=== PATIENT | male | born 1980 | race Caucasian/White ===

== ENCOUNTER 2019-04-25 07:39 | Emergency (ER) | payer MEDICAID ==
[~2019-04-25] VITALS: Ht 185.4 cm; Wt 69.0 kg
[2019-04-25 07:50] VITALS: BP 125/71
--- NOTE | 2019-04-25 10:00 | NUR ---
Came back to evaluate patient at which time, there was no patient belongings in room and patient was no longer here.
== END 2019-04-25 10:40 | disposition left against medical advice (07) ==
LOC: ER 07:40
DX: J02.9 Acute pharyngitis, unspecified (principal); R05 Cough; R50.9 Fever, unspecified; F17.200 Nicotine dependence, unspecified, uncomplicated; Z88.8 Allergy status to other drugs, medicaments and biological substances
CPT/HCPCS: 87081; 87880; 99283

== ENCOUNTER → 2020-02-09 | Emergency (ER) | payer MEDICAID ==
[~2020-02-09] VITALS: Ht 182.9 cm; Wt 81.1 kg
[2020-02-09 11:06] VITALS: BP 150/74
== END | disposition home or self-care (01) ==
LOC: ER 11:01
DX: R07.81 Pleurodynia (principal); M79.601 Pain in right arm; M79.602 Pain in left arm; Z00.01 Encounter for general adult medical examination with abnormal findings; Z88.0 Allergy status to penicillin; Y04.8XXA Assault by other bodily force, initial encounter; Y93.89 Activity, other specified; Y92.89 Other specified places as the place of occurrence of the external cause; Y99.8 Other external cause status
CPT/HCPCS: 71046; 73130; 99284

== ENCOUNTER 2024-12-16 16:34 | Emergency (ER) | payer MEDICAID ==
[~2024-12-16] VITALS: Ht 180.3 cm; Wt 81.8 kg
[2024-12-16 16:36] VITALS: TEMP 98.1
--- NOTE | 2024-12-16 17:43 | RADIOLOGY REPORT ---
CLINICAL INDICATION: RT.ANKLE PAIN TECHNIQUE: 3 radiographic views of the right ankle were obtained. Comparison: HAND, COMPLETE (3VW MIN) on DOS: 02/09/20 FINDINGS/IMPRESSION: There is no evidence of acute fracture or dislocation. Small well corticated bony fragment distal to the lateral malleolus which may represent sequela of prior injury. Mild medial moderate lateral ankle soft tissue edema. The visualized joint space is well maintained. The alignment is anatomical.
--- NOTE | 2024-12-16 18:08 | Physician Documentation ---
History of Present Illness ~ Chief Complaint: Ankle pain Stated Complaint: LEFT ANKLE PAIN Time Seen by MD: 16:43 Primary Medical Doctor: NONE HPI Patient is seen today with complaints of pain in his right ankle after walking across the street and accidentally stepping into a pothole or ditch and rolling his right ankle. Patient states he feels like he broke it. Patient states he heard a pop. Patient has no other concern or complaint at this time. Medication Reconciliation Allergies: Coded Allergies: Penicillins (Unverified Allergy, Unknown, 12/16/24) Past Medical History Past Medical History: No Pertinent History Past Surgical History: no surgical history Alcohol Use: Other Drug Use: other Lives with: Spouse Lives In: Home Occupation: other Review of Systems Constitutional: Denies: chills, fever, weakness Eyes: Denies: pain, blurred vision ENT: Denies: ear pain, nose pain, throat pain, mouth pain Respiratory: Denies: cough, shortness of breath Cardiovascular: Denies: chest pain, palpitations Gastrointestinal: Denies: abdominal pain, nausea, vomiting Genitourinary: Denies: burning, dysuria Male Genitalia: Denies: penile discharge, testicular pain Neurological: Denies: headache, dizziness Musculoskeletal: Denies: pain, swelling Integumentary: Denies: rash, lesions Allergic/Immunologic: Denies: hives, itching Hematologic/Lymphatic: Denies: no symptoms reported Psychiatric: Denies: depression, anxiety Physical Exam Vital Signs: Temperature: 98.1, Source: Temporal, Heart Rate: 107, Respiratory Rate: 16, BP: 130/87, Pulse Oximetry: 98, Weight: 81.800 Oxygen Flow Rate: 0 Physical Exam General: Awake and Alert, no acute distress. HEENT: Conjunctiva pink, Sclera clear, Mucus Membranes moist. Neck: Supple without masses and tenderness. Resp: Unlabored. Lungs clear to auscultation bilaterally. Heart: Regular Rate and rhythm, normal S1 and S2 without murmur, rub or gallop. Musculoskeletal: Patient on exam does have significant swelling of the over the lateral malleoli of the right ankle. As well as significant tenderness to palpation. Patient Extremities: No cyanosis,clubbing or edema. Skin: Warm and Dry. Progress Results/Orders Results/Orders Vital Signs 12/16/24 16:36 Temp 98.1 Pulse 107 Resp 16 B/P (MAP) 130/87 Pulse Ox 98 O2 Flow Rate 0 EKG/XRAY/CT/US/VASC/MRI Bone/Soft Tissue X-Ray (Ext.) : Additional Comment X-ray of right ankle interpreted by myself today shows no sign of acute fracture, bones in anatomic alignment, there is demonstrated a well corticated bony fragment distal to the lateral malleoli likely from previous injury. DIAGNOSTIC RADIOLOGY Patient: BRO HANSON Medical Record: [id number] [facility] : 1980, Age: 44 Sex: Male Location: ER Patient Status: [facility] ER Service Date/Time: 12/16/241653 Ordering Physician: ALBERT BAH MD Exam: ANKLE, COMPLETE(3VW MIN) CLINICAL INDICATION: RT.ANKLE PAIN TECHNIQUE: 3 radiographic views of the right ankle were obtained. Comparison: HAND, COMPLETE (3VW MIN) on DOS: 02/09/20 FINDINGS/IMPRESSION: There is no evidence of acute fracture or dislocation. Small well corticated bony fragment distal to the lateral malleolus which may represent sequela of prior injury. Mild medial moderate lateral ankle soft tissue edema. The visualized joint space is well maintained. The alignment is anatomical. Electronically Signed by:CLAUDINE BURTON DO Date & Time: 12/16/241740 Dictated by: CLAUDINE BURTON DO Dictation date and time: 12/16/241740 Primary Care Provider: NO PRIMARY CARE PROVIDER cc: ALBERT BAH MD ~ Medical Decision Making Findings Patient is seen today with complaints of pain in his right ankle after walking across the street and accidentally stepping into a pothole or ditch and rolling his right ankle. Patient states he feels like he broke it. Patient states he heard a pop. Patient has no other concern or complaint at this time. Patient did have x-ray taken of right ankle that showed no sign of acute fracture. Patient will ice, elevate, compress and rest over the next few days 20 minutes on 20 minutes off. Patient will advance activity level as tolerated. Patient will follow up with primary care in 5-7 days if no better as needed iva ner. Return to ED with any worsening, concerning or changing symptoms. Departure Disposition: HOME / SELF CARE / HOMELESS Impression: Primary Impression: Sprain of ankle Qualified Codes: S93.401A - Sprain of unspecified ligament of right ankle, initial encounter Condition: Stable Discharge Instructions: Ankle Sprain Additional Instructions: Patient did have x-ray taken of right ankle that showed no sign of acute fracture. Patient will ice, elevate, compress and rest over the next few days 20 minutes on 20 minutes off. Patient will advance activity level as tolerated. Patient will follow up with primary care in 5-7 days if no better as needed sooner. Return to ED with any worsening, concerning or changing symptoms. Referrals: NO PRIMARY CARE PROVIDER (PCP) Signature Scribe Signature: No scribe Attestation: No scribe SCOTT CHUA PAC Dec 16, 2024 18:08
[2024-12-16 18:34] VITALS: BP 132/66; PULSE 84; RESP 16; O2SAT 98
== END 2024-12-16 18:35 | disposition home or self-care (01) ==
LOC: ER 16:34
DX: S93.491A Sprain of other ligament of right ankle, initial encounter (principal); Z88.0 Allergy status to penicillin; X50.1XXA Overexertion from prolonged static or awkward postures, initial encounter; Y93.01 Activity, walking, marching and hiking; Y92.89 Other specified places as the place of occurrence of the external cause; Y99.8 Other external cause status
CPT/HCPCS: 73610; 99284